=== PATIENT | female | born 1965 | race Caucasian/White ===

== ENCOUNTER 2017-01-01 01:03 | Emergency (ER) | payer MEDICARE ==
[~2017-01-01] VITALS: Ht 157.5 cm; Wt 67.1 kg
[~2017-01-01 01:03] MED LIST: ALBUTEROL17 GM INH; AMITRYPTYLINE PO; AMOXICILLIN PO; ASPERDRINK81 MG PO; ASPIRIN PO; ATENOLOL PO; BACTRIM DS TABL1 TAB PO; BAYER CHEWABLE81 MG PO; CARVEDILOL3.125 MG PO; CELEXA PO; CELEXA10 MG PO; CLOPIDOGREL BIS75 MG PO; CRESTOR10 MG PO; DIFLUCAN PO; DOXYCYCLINE PO; EFFIENT10 MG PO; FLEXERIL10 M1 PO; GLYNASE PO; KEFLEX PO; KEFLEX500 M1 PO; LIPITOR20 MG DOB; LISINOPRIL PO; MACROBID 100 M100 MG PO; METFORMIN HCL500 M1 PO; METFORMIN HCL500 M3 PO; NAPROSYN-EC500 M1 PO; NAPROSYN500 MG PO; NAPROXEN PO; NEXIUM PO; NORCO 7.5-3251 EACH PO; PREVACID PO; PRINIVIL40 MG PO; PROAIR HFA8.5 GM IH; SYMBICORT INH; VICODIN 5/500 T1 TAB PO; ZYPREXA PO
== END 2017-01-01 05:46 | disposition home or self-care (01) ==
LOC: CED 01:03
DX: G44.209 Tension-type headache, unspecified, not intractable (principal); E11.9 Type 2 diabetes mellitus without complications; I10 Essential (primary) hypertension; F32.9 Major depressive disorder, single episode, unspecified; F17.200 Nicotine dependence, unspecified, uncomplicated
CPT/HCPCS: 82947; 96374; 99284; J1885